=== PATIENT | female | born 1955 | race Caucasian/White ===

== ENCOUNTER → 2019-06-29 | Day surgery (SDC) | payer MEDICARE ==
[~2019-06-29] MED LIST: BACLOFEN10 MG PO; CEFTRIAXONE SOD 1 GM/NS 50 ML 50 ML IV ONE; CITALOPRAM HBR20 MG PO; DEXAMETHASONE SOD PHOS INJ 4 MG/ML VIAL ONE; DIAZEPAM5 MG PO; EPHEDRINE SULFATE INJ 50 MG/ML VIAL ONE; FENOFIBRATE145 MG PO; FENTANYL CITRATE/PF 100MCG/2 ML INJ ONE; GABAPENTIN300 MG PO; IOPAMIDOL 300MG/ML 50ML INFUS..BTL IV ONE; LIDOCAINE HCL 2% LOCAL INJ 5 ML SDV VIAL INJ ONE; LISINOPRIL2.5 MG PO; METOPROLOL SUCC50 MG PO; ONDANSETRON HCL INJ 2MG/ML 2ML 2 MG/ML VIAL ONE; OXYBUTYNIN CHLOR5 MG PO; PROPOFOL IV EMULSION 10 MG/ML 20 ML VIAL ONE; SEVOFLURANE INHAL SOLN 250 ML PEN BTL ONE
--- OUTSIDE RECORDS SUMMARY | 2019-06-29 05:33 | XMS REPORT ---
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
--- NOTE | 2019-06-29 07:41 | Diagnostic Imaging Report ---
EXAM: Abdomen Radiograph 1 View INDICATION: Renal calculi , preop for lithotripsy COMPARISON: None FINDINGS: No abnormalities in the lower chest. No lines or tubes. Normal volume of stool in the colon. No dilated loops of small bowel. Suspect an approximately 2 cm left renal calculus. No abnormal soft tissue masses. No pneumoperitoneum. No acute osseous abnormality. Degenerative changes in the lumbar spine pelvis and hips. IMPRESSION: Suspect an approximately 2 cm left renal calculus. Signed by: Mathieu Castillo DO on 06/29/2019 7:38 AM
[2019-06-29 09:00] VITALS: BP 174/85
--- NOTE | 2019-06-29 16:21 | Operative Report ---
DATE OF PROCEDURE: 06/29/2019 SURGEON: Pierre Pollack MD PREOPERATIVE DIAGNOSES: 1. Urinary retention. 2. Left kidney stone. POSTOPERATIVE DIAGNOSES: 1. Urinary retention. 2. Left kidney stone. PROCEDURES: 1. Staged shock wave lithotripsy (entirely separate procedure for left kidney stone). 2. Suprapubic tube exchange, complicated (entirely separate procedure complicated secondary to encrustation). ANESTHESIA: General. ESTIMATED BLOOD LOSS: Minimal. COMPLICATIONS: None. INDICATIONS: Ms. Arce is a 63-year-old female with a history of neurogenic bladder and left kidney stone. She and I had a long discussion about alternatives, risks, and benefits including doing nothing, shock wave lithotripsy, ureteroscopy, percutaneous surgery or open surgery. She voiced understanding of the options, alternatives, risks, and benefits and elected to proceed with shock wave lithotripsy. PROCEDURE IN DETAIL: After informed consent was obtained, the patient was taken to the operative suite, she was placed supine on the operating table. She underwent general anesthesia by the Anesthesia Service. Stone was localized in the X, Y and Z planes. Shockwave lithotripsy performed without complication. Details performed per treatment port. Fluoroscopy was supervised and dosages per treatment report. The patient tolerated the procedure well. A 24-[place] silicone Blunt catheter was exchanged, returning crystal clear urine from the suprapubic tube site, 10 mL was inserted in the balloon. The bladder was drained. The patient was awakened from anesthesia and transported to the recovery room in excellent condition. Pierre Pollack MD ES/MODL /[id number]
== END | disposition home or self-care (01) ==
LOC: OR 05:31
PROVIDERS: ATTEND Urology
DX: N20.0 Calculus of kidney (principal); R32 Unspecified urinary incontinence; Z43.5 Encounter for attention to cystostomy; N39.0 Urinary tract infection, site not specified; N31.9 Neuromuscular dysfunction of bladder, unspecified; G83.89 Other specified paralytic syndromes; I10 Essential (primary) hypertension; E11.9 Type 2 diabetes mellitus without complications; E78.5 Hyperlipidemia, unspecified; F32.9 Major depressive disorder, single episode, unspecified; Z88.6 Allergy status to analgesic agent; Z91.040 Latex allergy status; Z01.810 Encounter for preprocedural cardiovascular examination; Z87.891 Personal history of nicotine dependence
CPT/HCPCS: 50590; 51705; 74018; 93005; J0696; J1100; J2001; J2405; J2704; J3010

== ENCOUNTER → 2021-04-05 | Day surgery (SDC) | payer MEDICARE ==
[~2021-04-05] MED LIST changes: +CEFTRIAXONE 1 GM VIAL ONE; -CEFTRIAXONE SOD 1 GM/NS 50 ML 50 ML IV ONE; +DEXAMETHASONE SOD PHOS INJ 4 MG/ML SDV ONE; -DEXAMETHASONE SOD PHOS INJ 4 MG/ML VIAL ONE; -EPHEDRINE SULFATE INJ 50 MG/ML VIAL ONE; +LIPITOR20 MG PO; +MIDAZOLAM HCL 2 MG/2 ML VIAL ONE; +POVIDONE IODINE 0.05% 0.05 % ML PO ONE; +SODIUM CHLORIDE 0.9% 50ML 50 ML ONE
[2021-04-05 07:51] LABS: BASOPHILS # (AUTO) 0.1 (0.0-0.1); BASOPHILS % 0.6 % (0.0-1.0); EOSINOPHILS # (AUTO) 0.3 (0.0-0.4); EOSINOPHILS % 2.5 % (0.0-6.0); HEMOGLOBIN 11.6 g/dL (12.0-16.0); LYMPHOCYTES # (AUTO) 2.4 (1.0-3.2); LYMPHOCYTES % 18.9 % (18.0-39.1); MEAN CORPUSCULAR HEMOGLOBIN 30.1 pg (28-32); MEAN CORPUSCULAR HGB CONC 31.4 g/dL (31-35); MEAN CORPUSCULAR VOLUME 96.1 fL (81-99); MONOCYTES # (AUTO) 1.5 (0.2-0.8); MONOCYTES % 12.1 % (4.4-11.3); NEUTROPHILS # (AUTO) 8.2 (2.1-6.9); NEUTROPHILS % 65.5 % (38.7-80.0); PLATELET COUNT 481 x10e3/uL (140-360); RED BLOOD COUNT 3.85 x10e6/uL (3.6-5.1); RED CELL DISTRIBUTION WIDTH 13.3 % (11.7-14.4)
[2021-04-05 10:40] VITALS: BP 131/76
== END | disposition home or self-care (01) ==
LOC: OR 07:22
PROVIDERS: ATTEND Urology
DX: N20.1 Calculus of ureter (principal); N20.0 Calculus of kidney; R33.9 Retention of urine, unspecified; Z46.6 Encounter for fitting and adjustment of urinary device; E78.5 Hyperlipidemia, unspecified; I10 Essential (primary) hypertension; G82.20 Paraplegia, unspecified; Z88.6 Allergy status to analgesic agent; Z91.040 Latex allergy status; Z20.822 Contact with and (suspected) exposure to COVID-19; Z79.899 Other long term (current) drug therapy
CPT/HCPCS: 36415; 50590; 51710; 74018; 85025; 93005; C1758; J0696; J1100; J2001; J2250; J2405; J2704; J3010; Q9967; U0002